=== PATIENT | male | born 1985 | race African-American/Black ===

== ENCOUNTER 2021-12-07 16:54 | Emergency (ER) | payer MEDICAID, MEDICARE ==
[~2021-12-07] VITALS: Ht 182.9 cm; Wt 78.0 kg
[2021-12-07] MEDS ORDERED: SODIUM CHLORIDE 0.9% 1,000 ML IV ONE (17:45)
[2021-12-07 18:12] LABS: BASOPHILS % 0.1 % (0.0-2.0); EOSINOPHILS % 0.5 % (0.0-5.0); HEMATOCRIT. 50.2 % (42.0-52.0); HEMOGLOBIN. 16.9 g/dL (14.0-18.0); LYMPHOCYTES % 21.5 % (20.0-50.0); MEAN CORPUSCULAR HEMOGLOBIN 32.3 pg (28.0-32.0); MEAN CORPUSCULAR VOLUME 96.2 fL (80.0-94.0); MEAN PLATELET VOLUME 7.5 fl (7.4-10.4); NEUTROPHILS % 71.9 % (40.0-76.0); PLATELET 222 x1000/uL (130-400); RED BLOOD CELL COUNT 5.22 mill/uL (4.7-6.1); RED CELL DISTRIBUTION WIDTH 12.7 % (11.6-14.6)
[2021-12-07 18:24] LABS: CHLORIDE 107 mEq/L (98-107)
[2021-12-07] MEDS ORDERED: LEVETIRACETAM 500MG PREMIX 100 ML IV NR (19:15)
[2021-12-07] MEDS ORDERED: GADOTERATE MEGLUMINE 5 MMOL/10 ML VIAL IV ONE (20:28)
[2021-12-07 21:27] LABS: CLARITY URINE CLEAR (CLEAR); COLOR URINE YELLOW (YELLOW); KETONES URINE 2+ (NEGATIVE); LEUKOCYTE ESTERASE URINE NEGATIVE (NEGATIVE); NITRITE URINE NEGATIVE (NEGATIVE); OCCULT BLOOD URINE NEGATIVE (NEGATIVE); PH URINE 5.5 (4.5-8.0); PROTEIN URINE TRACE (NEGATIVE); SPECIFIC GRAVITY URINE 1.031 (1.005-1.030)
[2021-12-07] MEDS ORDERED: ASPIRIN 325MG EC TABLET PO ONE (21:45)
[2021-12-07] MEDS ORDERED: ONDANSETRON HCL 4MG/2ML INJ IV ONE (22:30)
[2021-12-07 23:01] VITALS: BP 110/66
[2021-12-07] MEDS ORDERED: IOHEXOL-350 100 ML BOTTLE ONE (23:21)
== END 2021-12-07 23:10 | disposition short-term general hospital (02) ==
LOC: ER 16:54
DX: I63.9 Cerebral infarction, unspecified (principal); Z98.890 Other specified postprocedural states; R56.9 Unspecified convulsions; Z20.822 Contact with and (suspected) exposure to COVID-19
CPT/HCPCS: 36415; 70450; 70496; 70498; 70553; 71045; 80053; 81003; 82962; 85025; 87426; 93005; 96365; 96375; 99291; A9577; J1953; J2405; J7030; Q9967